=== PATIENT | male | born 1975 | race Caucasian/White ===

== ENCOUNTER 2022-10-16 12:38 | Outpatient (OUT) | payer OTHER, SELFPAY ==
--- NOTE | 2022-10-16 12:53 | ECG_ITS ---
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
--- NOTE | 2022-10-16 13:05 | XR_ITS ---
The [address] [address] Patient Name: ELIUD DUNCAN MRN: [id number] date: 1975 Sex: M Assigned Patient Location: CARD Current Patient Location: CARD Accession/Order Number: [id number] Exam Date: 10/16/2022 13:08 Report Date: 10/16/2022 13:31 At the request of: NON-STAFF PHYSICIAN Procedure: XR chest 2V EXAM: XR chest 2V HISTORY: Weight Loss R63.4 COMPARISON: None. TECHNIQUE: Upright PA and lateral chest x-ray FINDINGS: The heart is not enlarged and the vasculature is not distended. No acute infiltrate, effusion or pneumothorax is identified. The osseous structures are grossly intact. XR/XR chest 2V IMPRESSION: No acute infiltrate or evidence of cardiac decompensation. Direct comparison with a previous study is recommended to verify stability of these findings. Electronically authenticated by: JERRI CORREA Date: 10/16/2022 13:31
== END 2022-10-16 12:39 | disposition home or self-care (01) ==
LOC: CARD 12:43
DX: R63.4 Abnormal weight loss (principal); R00.1 Bradycardia, unspecified; R94.31 Abnormal electrocardiogram [ECG] [EKG]
CPT/HCPCS: 71046; 93005

== ENCOUNTER 2022-11-28 12:09 | Outpatient (OUT) | payer OTHER, SELFPAY ==
--- NOTE | 2022-11-28 12:58 | CA_ITS ---
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1975 Requested By: [id number] Order Number: [id number] Reading MD: SON SAENZ Interpretive Statements Predominant rhythm is sinus with average rate of 59 bpm Tachycardia - max rate of 116 bpm - 1 episode of PSVT of 3 beat duration - longest duration of 1min 15sec with rates between 109-116 bpm Bradycaria (68% burden) - slowest rate of 38 bpm - longest episode of 1h 7min 28sec with rates between 43-51 bpm Ventricular ectopy - none Patient triggered events: none Impression: Predominant rhythm is sinus with average rate of 59 bpm Fastest rate of 116 bpm and slowest rate of 38 bpm No ventricular ectopy No atrial fibrillation No pauses or blocks Electronically Signed On 01-05-2023 20:27:53 EDT by SON SAENZ
--- NOTE | 2022-11-28 12:59 | CA_ITS ---
Patient: ELIUD DUNCAN Exam Date: 11/28/2022 : 1975 Gender:M Ordering : DEBORAH FOSS Admission #: [id number] Family : Order #: [id number] CLICK HERE TO VIEW EXAM ECHOCARDIOGRAM REPORT PROCEDURE: CA ECHO DOPPLER COMPLETE INDICATIONS: ABN EKG COMPARISON: None. DESCRIPTION: COMPLETE ECHOCARDIOGRAM Real-time transthoracic echocardiography with 2D, M-mode, spectral and color flow Doppler performed. QUALITY: Technical quality was good. LEFT VENTRICLE: Normal chamber size. Normal left ventricular wall thickness. Normal systolic function. LV EF: Normal left ventricular ejection fraction, (65%). DIASTOLIC: Normal diastolic function. ATRIAL SEPTUM: Visually appears intact. LEFT ATRIUM: Normal chamber size. RIGHT ATRIUM: Normal chamber size. RIGHT VENTRICLE: Normal chamber size. Normal right ventricular systolic function. TRICUSPID VALVE: Normal mobility and thickness. No stenosis with trivial regurgitation. No evidence of pulmonary hypertension. RVSP 27 mmHg MITRAL VALVE: Normal mobility and thickness. No evidence of mitral valve stenosis. There is no mitral annular calcification. Trivial mitral regurgitation. AORTIC VALVE: Normal trileaflet appearance. No visible sclerosis. Normal leaflet mobility. No evidence of aortic valve stenosis. No aortic regurgitation. AORTIC ROOT: Normal diameter and appearance. PULMONIC VALVE: Normal thickness and mobility. No stenosis. Trivial regurgitation. PERICARDIUM: No evidence of pericardial effusion. IVC: Normal sinus. Collapses with inspiration. PLEURA: CONCLUSION: 1. Normal ventricular size and systolic function. LVEF is 65%. 2. Normal diastolic function. 3. No significant valvular dysfunction. 4. Normal right-sided pressures. Adult Echocardiography Procedure Report Left Ventricle LVEDD (3.7 - 5.6 cm): 4.35 cm LVESD (2.2 - 4.0 cm): 3.14 cm LVIVS thickness (0.6 - 1.2 cm): 0.81 cm LVPW thickness (0.5 - 1.0 cm): 0.87 cm e': 0.12 m/s E - e': 5.83 LVOT Max Gradient: 4.38 mm[Hg] LVOT Area (cm2): 1.05 m/s Peak Velocity (LVOT): 1.05 m/s Mean Velocity (LVOT): 0.67 m/s LVOT Diameter 2.52 cm Left Atrium LA Volume Index (2D A2C): 26.23 ml/m2 Left Atrium Systolic Dimension: 2.93 cm Mitral Valve MV E to A Ratio: 1.40 Mitral Valve A-Wave Peak Velocity: 0.50 m/s Mitral Valve E-Wave Peak Velocity: 0.70 m/s Right Ventricle Aorta AO Root Diam: 3.60 cm Ascending Ao Diam: 2.63 cm Aortic Valve AoV Area (Peak Mathieu): 4.89 cm2, 4.89 cm2 AoV Area (VTI): 3.87 cm2, 3.87 cm2 Peak Velocity(Antegrade Flow): 1.06 m/s Peak Gradient(Antegrade Flow): 4.53 mm[Hg] Mean Velocity(Antegrade Flow): 0.73 m/s Mean Gradient(Antegrade Flow): 2.46 mm[Hg] Velocity Time Integral: 25.11 cm Tricuspid Valve Peak Velocity (Regurgitant Flow): 2.45 m/s, 2.09 m/s Pulmonic Valve Peak Velocity: 0.88 m/s Peak Gradient: 2.98 mm[Hg], 3.27 mm[Hg] Right Atrium Right Atrium Systolic Pressure: 38.10 ml, 38.10 ml Dictated by: Vipul Gastelum M.D. on 11/28/2022 at 18:01 Approved by: Vipul Gastelum M.D. on 11/28/2022 at 18:03
== END 2022-11-28 12:10 | disposition home or self-care (01) ==
LOC: CARD 12:09
DX: R00.2 Palpitations (principal); R94.31 Abnormal electrocardiogram [ECG] [EKG]
CPT/HCPCS: 93242; 93306